=== PATIENT | male | born 1980 | race Caucasian/White ===

== ENCOUNTER 2017-06-08 21:50 | Inpatient (IN) | payer OTHER ==
[~2017-06-08] VITALS: Ht 182.9 cm; Wt 131.4 kg
[2017-06-08] MEDS ORDERED: SERT-138 PO (22:02)
[2017-06-08] MEDS ORDERED: AMLO5TAB2 PO (22:02)
[2017-06-08] MEDS ORDERED: OMEP20CA3 PO (22:02)
[2017-06-09] MEDS ORDERED: ONDANSETRON 4MG/2ML VIAL (J2405) IV ONE (00:30)
[2017-06-09] MEDS ORDERED: MORPHINE 4 MG/ML 1ML SYRINGE IV PRN (00:30)
[2017-06-09] MEDS ORDERED: NS 1,000 ML IV ONE (00:30)
[2017-06-09 01:41] LABS: BASO # 0.1 K/mm3 (0.0-0.2); BASO % 0.6 % (0.0-1.0); EOS # 0.2 K/mm3 (0.0-0.50); EOS % 1.5 % (0.0-3.0); LARGE UNSTAINED CELL # 0.2 K/mm3 (0.0-0.4); LARGE UNSTAINED CELL % 1.6 % (0.0-4.0); LYMPH # 2.7 K/mm3 (1.5-4.5); MEAN CORPUSCULAR HEMOGLOBIN 30.1 pg (27.0-33.0); MEAN CORPUSCULAR HGB CONC 34.9 g/dl (32.0-36.5); MEAN CORPUSCULAR VOLUME 86.3 fl (80.0-96.0); MONO # 0.5 K/mm3 (0.0-0.8); MONO % 4.7 % (0.0-5.0); NEUTROPHILS # 6.6 K/mm3 (1.8-7.7); NEUTROPHILS % 66.6 % (36.0-66.0); PLATELET COUNT, AUTOMATED 261 k/mm3 (150-450); RED CELL DISTRIBUTION WIDTH 13.9 % (11.5-14.5); WHITE BLOOD COUNT 9.9 K/mm3 (4.0-10.0)
[2017-06-09 02:03] LABS: ALBUMIN 3.8 GM/DL (3.2-5.2); ALBUMIN/GLOBULIN RATIO 1.06 (1.00-1.93); ALKALINE PHOSPHATASE 90 U/L (45-117); ALT/SGPT 86 U/L (12-78); ANION GAP 6 MEQ/L (8-16); AST/SGOT 49 U/L (15-37); BILIRUBIN,DIRECT 0.2 MG/DL (0.0-0.2); BILIRUBIN,TOTAL 1.2 MG/DL (0.2-1.0); BLOOD UREA NITROGEN 10 MG/DL (7-18); CALCIUM LEVEL 8.7 MG/DL (8.5-10.1); CARBON DIOXIDE LEVEL 27 MEQ/L (21-32); CHLORIDE LEVEL 105 MEQ/L (98-107); GLOMERULAR FILTRATION RATE > 60.0 (>60); GLUCOSE, FASTING 86 MG/DL (70-105); POTASSIUM SERUM 3.8 MEQ/L (3.5-5.1); SODIUM LEVEL 138 MEQ/L (136-145); TOTAL PROTEIN 7.4 GM/DL (6.4-8.2)
[2017-06-09] MEDS ORDERED: ISOVUE-370 76% 100ML VIAL (Q9967) As Ordered ONE (02:29)
--- NOTE | 2017-06-09 03:40 | REPUSA ---
CLINICAL HISTORY: Abdominal pain. TECHNIQUE: Multiple axial, sagittal and coronal CT images were obtained through the abdomen and pelvi s after administration of oral and intravenous contrast material. Images were obtained before and aft er IV contrast administration. COMMENTS: Mild apparent thickening of the sigmoid colon. The liver is moderately enlarged with decreased attenuation without mass or defect. There is no intra or extrahepatic biliary ductal dilatation. The spleen is normal. The gallbladder contains multiple g allstones. The pancreas is of normal contour and attenuation characteristics. There is no evidence of adrenal mass. Both kidneys demonstrate prompt and equal nephrograms. The kidneys are normal in size, shape and conf iguration. There is no evidence of renal or ureteral mass. No renal or ureteral calculi are identifie d. There is no hydroureter or hydronephrosis. Appendectomy. There is no bowel wall thickening. No evidence for small or large bowel obstruction. Th ere is no evidence of abdominal ascites or lymphadenopathy. There is no evidence of intrinsic or extrinsic bladder mass. There is no pelvic ascites or lymphadeno shahnaz. Mild diffuse thickening of the wall of the bladder. Images of the lung bases show no evidence of pleural or parenchymal mass. There are no pleural effusi ons. The bony structures are free of lytic or blastic lesions. Multilevel degenerative changes are seen in volving the thoracolumbar spine. Scattered calcifications are seen involving the aorta and major bran ches compatible with atherosclerosis. IMPRESSION: Apparent thickening of the sigmoid colon. Underdistention, spasm versus mild colitis. Surgical changes of anterior abdominal wall. Cholelithiasis. Appendectomy. Thank you for your kind referral of this patient.
--- NOTE | 2017-06-09 04:50 | REPUSA ---
CLINICAL HISTORY: RUQ pain. TECHNIQUE: Realtime sonographic images were obtained in multiple projections. COMMENTS: The visualized liver is of uniform increased echo texture without evidence of mass or defect. There i s no intra or extrahepatic biliary ductal dilatation. The gallbladder is physiologically distended wi tht evidence of calculi. The gallbladder wall is not thickened and there is no pericholecystic fluid. The visualized portions of the pancreas are unremarkable. The right kidney measures 13.2x5.9 cm. IMPRESSION: Fatty liver infiltration. Cholelithiasis. Thank you for your kind referral of this patient.
[2017-06-09] MEDS: HYDROmorphone HCL 1 MG/ML SYRINGE (J1170) IV PRN ×2 (04:53→07:18)
[2017-06-09] MEDS ORDERED: NS 1,000 ML IV SCH (08:44)
[2017-06-09] MEDS ORDERED: EPIDURAL/PCA KEYS XX PRN (08:45)
[2017-06-09] MEDS ORDERED: NALBUPHINE HCL 10 MG/ML AMP (J2300) IV PRN (08:45)
[2017-06-09] MEDS ORDERED: MORPHINE 1MG/ML IN 0.9% NACL 100ML IV BAG IV PRN (08:45)
[2017-06-09] MEDS ORDERED: diphenhydrAMINE INJ 50MG/ML VIAL (J1200) IV PRN (08:45)
[2017-06-09] MEDS ORDERED: NALOXONE INJ 0.4 MG/1 ML VIAL (J2310) IV PRN (08:45)
[2017-06-09] MEDS ORDERED: VITA-121 PO (09:05)
[2017-06-09] MEDS ORDERED: ACET1TAB17 PO (09:05)
[2017-06-09] MEDS ORDERED: ASPI1TAB PO (09:05)
[2017-06-09] MEDS ORDERED: VITMTA PO (09:05)
[2017-06-09] MEDS ORDERED: CINN500C9 PO (09:05)
[2017-06-09] MEDS: CIPROFLOXACIN 400 MG in APPROPRIATE DILUENT 1 EA IV SCH ×2 (09:53→21:13)
[2017-06-09] MEDS: D5W/LR 1,000 ML IV SCH ×2 (09:53→18:22)
[2017-06-09] MEDS: PANTOPRAZOLE 40MG TAB (PROTONIX) PO SCH (09:53)
[2017-06-09] MEDS: metroNIDAZOLE 500 MG in APPROPRIATE DILUENT 1 EA IV SCH ×2 (11:12→18:25)
[2017-06-09 12:10] VITALS: BP 126/79
[2017-06-09 13:30] VITALS: BP 128/71
[2017-06-09] MEDS: ACETAMINOPHEN TAB 650MG DOSE (2X325MG) PO PRN (13:38)
[2017-06-09 14:30] VITALS: BP 126/79
[2017-06-09] MEDS: DOCUSATE SODIUM 100 MG CAP PO SCH ×2 (15:26→21:12)
[2017-06-09 15:30] VITALS: BP 132/79
[2017-06-09] MEDS: IPRATROPIUM 0.5MG/ALBUTEROL 2.5MG INH SOL UD 3ML (DUONEB)(J7620) NEB SCH ×2 (15:44→20:00)
[2017-06-09 16:30] VITALS: BP 128/74
[2017-06-09] MEDS: ONDANSETRON 4MG/2ML VIAL (J2405) IV PRN (18:27)
[2017-06-09 20:00] VITALS: BP 121/69
[2017-06-10] VITALS: BP 114/77
[2017-06-10] MEDS: metroNIDAZOLE 500 MG in APPROPRIATE DILUENT 1 EA IV SCH ×3 (02:11→18:00)
[2017-06-10 04:00] VITALS: BP 116/67
[2017-06-10] MEDS: D5W/LR 1,000 ML IV SCH (07:15)
[2017-06-10] MEDS: IPRATROPIUM 0.5MG/ALBUTEROL 2.5MG INH SOL UD 3ML (DUONEB)(J7620) NEB SCH ×4 (07:25→21:16)
[2017-06-10 07:32] LABS: MEAN CORPUSCULAR HEMOGLOBIN 30.4 pg (27.0-33.0); MEAN CORPUSCULAR HGB CONC 34.4 g/dl (32.0-36.5); MEAN CORPUSCULAR VOLUME 88.2 fl (80.0-96.0); RED CELL DISTRIBUTION WIDTH 13.6 % (11.5-14.5); WHITE BLOOD COUNT 10.4 K/mm3 (4.0-10.0)
[2017-06-10 07:55] LABS: ANION GAP 7 MEQ/L (8-16); BLOOD UREA NITROGEN 6 MG/DL (7-18); CALCIUM LEVEL 8.6 MG/DL (8.5-10.1); CARBON DIOXIDE LEVEL 28 MEQ/L (21-32); CHLORIDE LEVEL 104 MEQ/L (98-107); CREATININE FOR GFR 0.83 MG/DL (0.70-1.30); GLOMERULAR FILTRATION RATE > 60.0 (>60); GLUCOSE, FASTING 122 MG/DL (70-105); POTASSIUM SERUM 4.1 MEQ/L (3.5-5.1); SODIUM LEVEL 139 MEQ/L (136-145)
[2017-06-10 08:00] VITALS: BP 131/95
[2017-06-10 08:24] LABS: ALBUMIN 3.4 GM/DL (3.2-5.2); ALBUMIN/GLOBULIN RATIO 0.94 (1.00-1.93); ALKALINE PHOSPHATASE 82 U/L (45-117); ALT/SGPT 95 U/L (12-78); AST/SGOT 51 U/L (15-37); BILIRUBIN,TOTAL 0.9 MG/DL (0.2-1.0)
[2017-06-10] MEDS: DOCUSATE SODIUM 100 MG CAP PO SCH ×2 (09:08→21:01)
[2017-06-10] MEDS: PANTOPRAZOLE 40MG TAB (PROTONIX) PO SCH (09:08)
[2017-06-10] MEDS: CIPROFLOXACIN 400 MG in APPROPRIATE DILUENT 1 EA IV SCH ×2 (09:08→21:01)
[2017-06-10 12:00] VITALS: BP 133/82
[2017-06-10] MEDS: NAPROXEN 250 MG TAB PO SCH ×2 (12:29→20:59)
[2017-06-10] MEDS: ONDANSETRON 4MG/2ML VIAL (J2405) IV PRN (13:58)
[2017-06-10 16:00] VITALS: BP 128/74
[2017-06-10 20:00] VITALS: BP 121/77
[2017-06-10] MEDS: ACETAMINOPHEN TAB 650MG DOSE (2X325MG) PO PRN (21:00)
[2017-06-11] VITALS: BP 142/80
[2017-06-11] MEDS: metroNIDAZOLE 500 MG in APPROPRIATE DILUENT 1 EA IV SCH (01:56)
[2017-06-11 04:00] VITALS: BP 114/74
[2017-06-11] MEDS: IPRATROPIUM 0.5MG/ALBUTEROL 2.5MG INH SOL UD 3ML (DUONEB)(J7620) NEB SCH ×2 (07:27→12:00)
[2017-06-11 07:37] LABS: MEAN CORPUSCULAR HEMOGLOBIN 30.3 pg (27.0-33.0); MEAN CORPUSCULAR HGB CONC 34.7 g/dl (32.0-36.5); MEAN CORPUSCULAR VOLUME 87.5 fl (80.0-96.0); RED CELL DISTRIBUTION WIDTH 13.6 % (11.5-14.5); WHITE BLOOD COUNT 9.1 K/mm3 (4.0-10.0)
[2017-06-11] MEDS ORDERED: traMADol 50 MG TAB PO PRN ×2 (07:45)
[2017-06-11 07:55] LABS: ANION GAP 5 MEQ/L (8-16); BLOOD UREA NITROGEN 9 MG/DL (7-18); CALCIUM LEVEL 8.9 MG/DL (8.5-10.1); CARBON DIOXIDE LEVEL 31 MEQ/L (21-32); CHLORIDE LEVEL 103 MEQ/L (98-107); CREATININE FOR GFR 0.96 MG/DL (0.70-1.30); GLOMERULAR FILTRATION RATE > 60.0 (>60); GLUCOSE, FASTING 110 MG/DL (70-105); POTASSIUM SERUM 3.7 MEQ/L (3.5-5.1); SODIUM LEVEL 139 MEQ/L (136-145)
[2017-06-11 08:00] VITALS: BP 112/71
[2017-06-11] MEDS: DOCUSATE SODIUM 100 MG CAP PO SCH (08:39)
[2017-06-11] MEDS: NAPROXEN 250 MG TAB PO SCH (08:40)
[2017-06-11] MEDS: CIPROFLOXACIN 400 MG in APPROPRIATE DILUENT 1 EA IV SCH (08:40)
[2017-06-11] MEDS: PANTOPRAZOLE 40MG TAB (PROTONIX) PO SCH (08:40)
[2017-06-11] MEDS ORDERED: CIPR-249 PO ×2 (13:36→13:38)
[2017-06-11] MEDS ORDERED: CIPROFLOXACIN 500 MG TAB PO SCH (18:00)
--- NOTE | 2017-07-06 19:19 | HPE ---
DATE OF ADMISSION: 06/09/2017 The patient is a 37-year-old gentleman who presents with abdominal pain, essentially woke up with severe back pain and right mid-sided abdominal pain. He, last August 2016, has had some ongoing pain problems with persistent discomfort, pressure on the right side of his abdomen. 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 PAST MEDICAL HISTORY: Significant for: 1. History of hypertension. 2. History of seasonal allergies. 3. History of diabetes mellitus. 4. History of appendiceal cancer. 5. History of appendectomy/peritonectomy. MEDICATIONS: Include: Norvasc, metformin, omeprazole, loratadine, Tylenol, oxycodone, Prozac, and lorazepam. PHYSICAL EXAMINATION: Reveals an obese white male who looks stated age. HEENT is unremarkable. Neck is supple without adenopathy. Lungs are clear to auscultation without crackles, wheezes or rhonchi. Heart is regular without murmur. Abdomen is soft, nondistended, nontender. No hepatosplenomegaly is appreciated. No masses are appreciated. No guarding. No rebound, although he has some tenderness on the right-hand side but it is really a deep pain and discomfort. It is not really superficial or even truly intra-abdominal type of pain. It seems to be quite deep or it is even been radiating from his back or laterally on his abdominal wall. He underwent evaluation, had a normal white count, had a CAT scan which was performed that showed some mild thickening of the sigmoid colon which could be from spasm or colitis. There were some surgical changes throughout his abdominal wall with some gallstones. No other significant abnormality was appreciated. They did do a gallbladder ultrasound which showed some fatty liver and gallstones but no evidence of acute inflammation. IMPRESSION AND PLAN: The patient has abdominal pain of undetermined etiology. My concern is that it probably is related to some previous scarring that he has had present which would fit better than an acute inflammatory process given his normal white count and truly no significant abnormality in this area. It may have been some adhesions that pulled. I do not see any hematoma present and it is unlikely that a malignancy recurrence would give this type of pain. In any case, we will make him nothing by mouth, IV fluids, IV antibiotics, start him on a clear liquid diet and advance his diet as tolerated once he seems to be under better pain control.
--- NOTE | 2017-07-06 19:23 | DSES ---
DATE OF ADMISSION: 06/09/2017 DATE OF DISCHARGE: 06/11/2017 PRINCIPAL DIAGNOSIS: Abdominal pain. ASSOCIATED DIAGNOSES: 1. History of appendiceal cancer with peritonectomy. 2. History of diabetes mellitus. 3. History of hypertension. 4. History of hypercholesterolemia. BRIEF HISTORY OF PRESENT ILLNESS: The patient is a 37-year-old gentleman who developed acute onset of right-sided abdominal pain, but mostly right flank pain. Came to the emergency room for evaluation and underwent a CAT scan, revealed no significant abnormality except some gallstones and some mild thickening/possible contracted colon and no evidence of abnormality on the right side of the abdomen. The patient has had some long history of abdominal pain since his abdominal operation and has been on pain medication for this, but this was a significant exacerbation and unusual for him. HOSPITAL COURSE SUMMARY: The patient was admitted with the above diagnosis, was given pain medication and had some improvement of his abdominal pain overnight. I anticipate it was most likely a musculoskeletal type of thing or adhesions which caused his abdominal pain, less likely to be an infectious etiology. He was discharged home on his usual medications; Tylenol, amlodipine, aspirin, vitamin D, acetaminophen, multivitamins, omeprazole, sertraline, and was also started on ciprofloxacin prior to discharge, and then was instructed to follow up in my office in two weeks, sooner if there is any question, concerns, fevers or chills in this the end of the dictation
== END 2017-06-11 14:45 | disposition home or self-care (01) | DRG 392 ==
LOC: M ED 21:50 → M ED INP 06-09 08:44 → M PED 06-09 11:28
PROVIDERS: ADMIT Surgery; ATTEND Surgery
DX: R10.9 Unspecified abdominal pain (principal); E11.9 Type 2 diabetes mellitus without complications; I10 Essential (primary) hypertension; E78.00 Pure hypercholesterolemia, unspecified; K80.20 Calculus of gallbladder without cholecystitis without obstruction

== ENCOUNTER 2017-07-22 10:30 | Outpatient (CLI) | payer OTHER ==
[~2017-07-22] VITALS: Ht 182.9 cm; Wt 127.0 kg
[~2017-07-22 10:30] MED LIST: ACET1TAB17 PO; AMLO5TAB2 PO; ASPI1TAB PO; CINN500C9 PO; CIPR-249 PO; OMEP20CA3 PO; SERT-138 PO; VITA-121 PO; VITMTA PO
[2017-07-22] MEDS ORDERED: PROPOFOL 500 MG/50 ML VIAL As Ordered ONE (10:42)
[2017-07-22] MEDS ORDERED: LIDOCAINE 2% INJ 100 MG/5 ML SDV (FOR ANES.) As Ordered ONE (10:52)
[2017-07-22] MEDS ORDERED: NS 1,000 ML IV ONE (11:00)
--- NOTE | 2017-07-22 11:20 | ROOR ---
Patient Name: Rip Reno Procedure Date: 07/22/2017 11:09 AM Date of : 1980 Age: 37 Room: [facility] Gender: Male Note Status: Finalized Procedure: Upper GI endoscopy Indications: Suspected esophageal reflux Providers: Joel Gallegos Jr, MD Referring MD: RIGOBERTO DESHPANDE MD Requesting Provider: Medicines: Propofol per Anesthesia Complications: No immediate complications. Procedure: Pre-Anesthesia Assessment: - Prior to the procedure, a History and Physical was performed, and patient medications and allergies were reviewed. The patient is competent. The risks and benefits of the procedure and the sedation options and risks were discussed with the patient. All questions were answered and informed consent was obtained. Patient identification and proposed procedure were verified by the physician and the nurse in the pre-procedure area and in the procedure room. Mental Status Examination: alert and oriented. Airway Examination: normal oropharyngeal airway and neck mobility. Respiratory Examination: clear to auscultation. CV Examination: normal. ASA Grade Assessment: II - A patient with mild systemic disease. After reviewing the risks and benefits, the patient was deemed in satisfactory condition to undergo the procedure. The anesthesia plan was to use moderate sedation / analgesia (conscious sedation). Immediately prior to administration of medications, the patient was re-assessed for adequacy to receive sedatives. The heart rate, respiratory rate, oxygen saturations, blood pressure, adequacy of pulmonary ventilation, and response to care were monitored throughout the procedure. The physical status of the patient was re-assessed after the procedure. The Endoscope was introduced through the mouth, and advanced to the second part of duodenum. The upper GI endoscopy was accomplished without difficulty. The patient tolerated the procedure. Findings: The upper third of the esophagus, middle third of the esophagus and lower third of the esophagus were normal. The cardia, gastric fundus, gastric antrum, prepyloric region of the stomach and pylorus were normal. Localized mildly erythematous mucosa without bleeding was found in the gastric body. The duodenal bulb, first portion of the duodenum and second portion of the duodenum were normal. Impression: - Normal upper third of esophagus, middle third of esophagus and lower third of esophagus. - Normal cardia, gastric fundus, antrum, prepyloric region of the stomach and pylorus. - Erythematous mucosa in the gastric body. - Normal duodenal bulb, first portion of the duodenum and second portion of the duodenum. - No specimens collected. Recommendation: - Discharge patient to home (ambulatory). - Return to my office PRN. Joel Gallegos MD Joel Gallegos Jr, MD 07/22/2017 11:20:21 AM This report has been signed electronically. Number of Addenda: 0 Note Initiated On: 07/22/2017 11:09 AM Estimated Blood Loss: Estimated blood loss: none.
--- NOTE | 2017-07-22 11:46 | ROOR ---
Patient Name: Rip Reno Procedure Date: 07/22/2017 11:10 AM Date of : 1980 Age: 37 Room: [facility] Gender: Male Note Status: Finalized Procedure: Colonoscopy Indications: High risk colon cancer surveillance: Personal history of colon cancer Providers: Joel Gallegos Jr, MD Referring MD: RIGOBERTO DESHPANDE MD Requesting Provider: Medicines: Propofol per Anesthesia Complications: No immediate complications. Procedure: Pre-Anesthesia Assessment: - Prior to the procedure, a History and Physical was performed, and patient medications and allergies were reviewed. The patient is competent. The risks and benefits of the procedure and the sedation options and risks were discussed with the patient. All questions were answered and informed consent was obtained. Patient identification and proposed procedure were verified by the physician and the nurse in the pre-procedure area and in the procedure room. Mental Status Examination: alert and oriented. Airway Examination: normal oropharyngeal airway and neck mobility. Respiratory Examination: clear to auscultation. CV Examination: normal. ASA Grade Assessment: II - A patient with mild systemic disease. After reviewing the risks and benefits, the patient was deemed in satisfactory condition to undergo the procedure. The anesthesia plan was to use moderate sedation / analgesia (conscious sedation). Immediately prior to administration of medications, the patient was re-assessed for adequacy to receive sedatives. The heart rate, respiratory rate, oxygen saturations, blood pressure, adequacy of pulmonary ventilation, and response to care were monitored throughout the procedure. The physical status of the patient was re-assessed after the procedure. The Colonoscope was introduced through the anus and advanced to the cecum, identified by appendiceal orifice and ileocecal valve. The colonoscopy was performed without difficulty. The patient tolerated the procedure well. The quality of the bowel preparation was adequate. Findings: Six polyps were found in the rectum, recto-sigmoid colon, descending colon, transverse colon and cecum. The polyps were small in size. These polyps were removed with a hot snare. Resection was complete, but the polyp tissue was only partially retrieved. The recto-sigmoid colon, ascending colon, appendiceal orifice and ileocecal valve appeared normal. Impression: - Six small polyps in the rectum, at the recto-sigmoid colon, in the descending colon, in the transverse colon and in the cecum, removed with a hot snare. Complete resection. Partial retrieval. - The recto-sigmoid colon, ascending colon, appendiceal orifice and ileocecal valve are normal. Recommendation: - Discharge patient to home (ambulatory). - Repeat colonoscopy in 1 year for surveillance based on pathology results. - Return to my office in 1 month. Joel Gallegos MD Joel Gallegos Jr, MD 07/22/2017 11:46:24 AM This report has been signed electronically. Number of Addenda: 0 Note Initiated On: 07/22/2017 11:10 AM Estimated Blood Loss: Estimated blood loss: none.
[2017-07-22] MEDS ORDERED: ASPI81TA85 PO (11:58)
[2017-07-22 12:10] VITALS: BP 139/96
== END 2017-07-22 12:27 | disposition home or self-care (01) ==
LOC: M OPP 10:30
PROVIDERS: ATTEND Surgery
DX: Z12.11 Encounter for screening for malignant neoplasm of colon (principal); Z85.038 Personal history of other malignant neoplasm of large intestine; K62.1 Rectal polyp; D12.7 Benign neoplasm of rectosigmoid junction; D12.4 Benign neoplasm of descending colon; D12.3 Benign neoplasm of transverse colon; D12.0 Benign neoplasm of cecum; R12 Heartburn; R10.813 Right lower quadrant abdominal tenderness; K21.9 Gastro-esophageal reflux disease without esophagitis; K31.89 Other diseases of stomach and duodenum; K52.9 Noninfective gastroenteritis and colitis, unspecified; I10 Essential (primary) hypertension; Z92.21 Personal history of antineoplastic chemotherapy; Z86.19 Personal history of other infectious and parasitic diseases; F32.9 Major depressive disorder, single episode, unspecified; G47.30 Sleep apnea, unspecified; Z87.442 Personal history of urinary calculi; Z88.8 Allergy status to other drugs, medicaments and biological substances; Z79.899 Other long term (current) drug therapy; Z79.82 Long term (current) use of aspirin

== ENCOUNTER 2018-12-25 18:15 | Emergency (ER) | payer OTHER ==
[~2018-12-25] VITALS: Ht 182.9 cm; Wt 131.8 kg
[~2018-12-25 18:15] MED LIST changes: -ACET1TAB17 PO; +ACET1TAB55 PO; -AMLO5TAB2 PO; +AMLO5TAB6 PO; +ASPI81TA85 PO
[2018-12-25] MEDS ORDERED: LIDOCAINE 2% MDV 20 ML VIAL SC ONE (19:15)
[2018-12-25] MEDS ORDERED: ADACEL/BOOSTRIX VACCINE (DIPHTH/PERTUSS/ACELL/TETANUS)0.5ML SYR (90715) IM ONE (19:15)
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
[2018-12-25 20:26] VITALS: BP 136/72
== END 2018-12-25 20:30 | disposition home or self-care (01) ==
LOC: M ED 18:15
DX: S01.81XA Laceration without foreign body of other part of head, initial encounter (principal); S00.01XA Abrasion of scalp, initial encounter; S00.12XA Contusion of left eyelid and periocular area, initial encounter; V86.55XA Driver of 3- or 4- wheeled all-terrain vehicle (ATV) injured in nontraffic accident, initial encounter; Y92.014 Private driveway to single-family (private) house as the place of occurrence of the external cause; I10 Essential (primary) hypertension; G47.33 Obstructive sleep apnea (adult) (pediatric); F33.9 Major depressive disorder, recurrent, unspecified; Z79.899 Other long term (current) drug therapy; Z79.82 Long term (current) use of aspirin; Z88.8 Allergy status to other drugs, medicaments and biological substances

== ENCOUNTER → 2020-05-23 | Outpatient (CLI) | payer OTHER ==
[~2020-05-23] MED LIST changes: +AMLO1TAB24 PO; -AMLO5TAB6 PO; -ASPI1TAB PO; +ASPI81TA26 PO; -ASPI81TA85 PO; +ASPI81TA86 PO; +OMEP1CAP73 PO; -OMEP20CA3 PO
--- NOTE | 2020-07-20 10:51 | REP ---
THORACIC SPINE SERIES: HISTORY: Mid-back pain. No injury. FINDINGS: 3-views of the thoracic spine performed. There is no evidence of compression fracture. There is normal alignment and thoracic kyphosis. There is mild diffuse spurring. There is mild disc space narrowing and subchondral sclerosis at multiple levels. The posterior elements are intact. IMPRESSION: Mild diffuse degenerative changes without evidence of compression fracture or malalignment. MTDD
== END ==
LOC: M WUC 11:31
PROVIDERS: ATTEND Internal Medicine
DX: M54.9 Dorsalgia, unspecified (principal)

== ENCOUNTER 2023-06-02 08:11 | Emergency (ER) | payer OTHER ==
[~2023-06-02] VITALS: Ht 182.9 cm; Wt 137.2 kg
[2023-06-02 08:11] VITALS: BP 139/86; TEMP 98; O2SAT 98
[2023-06-02] MEDS ORDERED: METF850T4 (08:18)
[2023-06-02] MEDS ORDERED: TRUL0.5I (08:18)
[2023-06-02] MEDS ORDERED: ROSU10TA6 (08:18)
[2023-06-02 10:37] LABS: BASO # 0.1 10^3/uL (0.0-0.2); BASO % 0.6 % (0.0-1.0); EOS # 0.1 10^3/uL (0.0-0.5); EOS % 1.3 % (0.0-3.0); HEMATOCRIT 44.1 % (42.0-52.0); HEMOGLOBIN 14.6 g/dl (13.5-17.5); LYMPH # 1.8 10^3/uL (1.5-5.0); LYMPH % 17.6 % (24.0-44.0); MEAN CORPUSCULAR HEMOGLOBIN 27.8 pg (27.0-33.0); MEAN CORPUSCULAR HGB CONC 33.1 g/dl (32.0-36.5); MEAN CORPUSCULAR VOLUME 83.8 fl (80.0-96.0); MONO # 0.7 10^3/uL (0.0-0.8); MONO % 6.9 % (2.0-8.0); NEUTROPHILS # 7.4 10^3/uL (1.5-8.5); NEUTROPHILS % 73.3 % (36.0-66.0); PLATELET COUNT, AUTOMATED 291 10^3/uL (150-450); RED BLOOD COUNT 5.26 10^6/uL (4.30-6.10); WHITE BLOOD COUNT 10.1 10^3/uL (4.0-10.0)
[2023-06-02 11:07] LABS: ALBUMIN 4.2 G/DL (3.2-5.2); ALKALINE PHOSPHATASE 80 U/L (46-116); ALT/SGPT 49 U/L (7.0-40); AST/SGOT 24 U/L (<34); BLOOD UREA NITROGEN 19 MG/DL (9-23); CALCIUM LEVEL 10.1 MG/DL (8.5-10.1); CARBON DIOXIDE LEVEL 26 MMOL/L (20-31); CHLORIDE LEVEL 104 MMOL/L (98-107); CREATININE FOR GFR 0.94 MG/DL (0.70-1.30); GLOMERULAR FILTRATION RATE > 60.0 (>60); GLUCOSE, FASTING 109 MG/DL (60-100); POTASSIUM SERUM 4.4 MMOL/L (3.5-5.1); SODIUM LEVEL 141 MMOL/L (136-145); TOTAL PROTEIN 7.5 G/DL (5.7-8.2)
[2023-06-02 11:15] LABS: HEPATITIS B SURFACE ANTIBODY POSITIVE (POSITIVE)
[2023-06-02 11:39] LABS: HIV 1&2 SCREEN NEGATIVE (NEGATIVE)
[2023-06-02 11:48] LABS: HEPATITIS C VIRUS ABY INDEX 0.13 INDEX (<0.8)
== END 2023-06-02 11:25 | disposition home or self-care (01) ==
LOC: M ED 08:11
DX: Z77.21 Contact with and (suspected) exposure to potentially hazardous body fluids (principal); I10 Essential (primary) hypertension; K21.9 Gastro-esophageal reflux disease without esophagitis; Z85.038 Personal history of other malignant neoplasm of large intestine; G47.30 Sleep apnea, unspecified; Z87.442 Personal history of urinary calculi; F32.A Depression, unspecified; Z79.899 Other long term (current) drug therapy; Z79.82 Long term (current) use of aspirin; Z79.84 Long term (current) use of oral hypoglycemic drugs; Z88.8 Allergy status to other drugs, medicaments and biological substances

== ENCOUNTER 2025-07-30 18:14 | Emergency (ER) | payer OTHER ==
[~2025-07-30] VITALS: Ht 182.9 cm; Wt 136.4 kg
[~2025-07-30 18:14] MED LIST changes: +METF850T4; +ROSU10TA61; +TRUL0.5I
[2025-07-30 18:19] VITALS: BP 134/87; TEMP 97.5; O2SAT 98
[2025-07-30] MEDS ORDERED: DULA4.5P (18:27)
[2025-07-30] MEDS ORDERED: AMLO1TAB25 (18:27)
[2025-07-30 21:38] LABS: BASO # 0.1 10^3/uL (0.0-0.2); BASO % 0.6 % (0.0-1.0); EOS # 0.2 10^3/uL (0.0-0.5); EOS % 1.6 % (0.0-3.0); LYMPH # 3.4 10^3/uL (1.5-5.0); LYMPH % 30.0 % (24.0-44.0); MONO # 0.8 10^3/uL (0.0-0.8); MONO % 6.8 % (2.0-8.0); NEUTROPHILS # 6.9 10^3/uL (1.5-8.5); NEUTROPHILS % 60.7 % (36.0-66.0); PLATELET COUNT, AUTOMATED 308 10^3/uL (150-450)
[2025-07-30 21:38] LABS: KETONE, URINE AUTO RFX NEGATIVE (NEGATIVE); MUCUS, URINE RFX SMALL (NEGATIVE); NITRITE, URINE AUTO RFX NEGATIVE (NEGATIVE); RBC, URINE AUTO RFX 1 /HPF (0-3); SQUAM EPITHELIAL CELL UR AURFX 0 /HPF (0-6); WBC, URINE AUTO RFX 8 /HPF (0-3)
[2025-07-30 21:55] LABS: LEUKOCYTE ESTERASE UR AUTO RFX TRACE (NEGATIVE)
[2025-07-30 21:59] LABS: CALCIUM LEVEL 9.1 MG/DL (8.5-10.1); CARBON DIOXIDE LEVEL 26.0 MMOL/L (20-31); CHLORIDE LEVEL 104.0 MMOL/L (98-107); CREATININE FOR GFR 1.08 MG/DL (0.70-1.30); GLOMERULAR FILTRATION RATE 86.2 (>60); POTASSIUM SERUM 4.0 MMOL/L (3.5-5.1); SODIUM LEVEL 142.0 MMOL/L (136-145)
== END 2025-07-30 23:07 | disposition left against medical advice (07) ==
LOC: M ED 18:14
DX: Z53.21 Procedure and treatment not carried out due to patient leaving prior to being seen by health care provider (principal)

== ENCOUNTER → 2025-08-14 | Outpatient (CLI) | payer OTHER ==
[~2025-08-14] MED LIST changes: +AMLO1TAB25; +AMLO1TAB25 PO; +APAP500T10 PO; +DULA4.5P; +METF-1191 PO; -ROSU10TA61; +ROSU10TA90; +ROSU10TA90 PO; +SERT50TA29 PO; +THERTAB52 PO; +TRUL0.5I SC
[2025-08-14 17:36] LABS: APPEARANCE, URINE CLOUDY (CLEAR); BACTERIA, URINE AUTO NEGATIVE (NEGATIVE); BILIRUBIN, URINE AUTO NEGATIVE (NEGATIVE); BLOOD, URINE BLOOD NEGATIVE (NEGATIVE); CALCIUM OXALATE CRYSTALS SMALL; GLUCOSE, URINE (UA) AUTO NEGATIVE (NEGATIVE); KETONE, URINE AUTO NEGATIVE (NEGATIVE); LEUKOCYTE ESTERASE, URINE AUTO TRACE (NEGATIVE); MUCUS, URINE SMALL (NEGATIVE); NITRITE, URINE AUTO NEGATIVE (NEGATIVE); PROTEIN, URINE AUTO 1+ mg/dL (NEGATIVE); RBC, URINE AUTO 7 /HPF (0-3); SPECIFIC GRAVITY URINE AUTO 1.024 (1.002-1.035); SQUAMOUS EPITHELIAL CELL UR AU 0 /HPF (0-6); UROBILINOGEN, URINE AUTO 0.2 mg/dL (0.0-2.0); WBC, URINE AUTO 23 /HPF (0-3)
[2025-08-14 18:05] LABS: CALCIUM LEVEL 10.2 MG/DL (8.5-10.1); CARBON DIOXIDE LEVEL 26.0 MMOL/L (20-31); CHLORIDE LEVEL 103.0 MMOL/L (98-107); CREATININE FOR GFR 1.2 MG/DL (0.70-1.30); GLOMERULAR FILTRATION RATE 76.0 (>60); POTASSIUM SERUM 3.9 MMOL/L (3.5-5.1); SODIUM LEVEL 141.0 MMOL/L (136-145)
== END ==
LOC: M WUC 14:58
PROVIDERS: ATTEND Physician Assistant
DX: Z01.818 Encounter for other preprocedural examination (principal)

== ENCOUNTER → 2025-08-16 | Outpatient (REF) | payer OTHER ==
[~2025-08-16] MED LIST changes: +MACR100C43 PO; +OXYB5TAB14 PO; +PYRI1TAB5 PO
[2025-08-16 14:53] LABS: PLATELET COUNT, AUTOMATED 338 10^3/uL (150-450)
== END ==
LOC: M LABWUC 14:30
PROVIDERS: ATTEND Physician Assistant
DX: Z01.818 Encounter for other preprocedural examination (principal)

== ENCOUNTER 2025-08-23 12:34 | Day surgery (SDC) | payer OTHER ==
[~2025-08-23] VITALS: Ht 182.9 cm; Wt 132.7 kg
[~2025-08-23 12:34] MED LIST changes: +LIDOCAINE 2% 100 MG/5 ML SDV (FOR ANES.) As Ordered ONE; -MACR100C43 PO; -OXYB5TAB14 PO; -PYRI1TAB5 PO; +ceFAZolin SOD 2 GM IV ONCE IV ONE; +dexAMETHasone 4 MG/ML 1 ML VIAL As Ordered ONE
[2025-08-23] MEDS ORDERED: LR 1,000 ML IV SCH ×2 (12:40→14:30)
[2025-08-23] MEDS: ceFAZolin SOD 3 GM in DEXTROSE 5% (D5W) MINI-BAG PLU 1... IV ONE (13:26)
[2025-08-23] MEDS ORDERED: KETOROLAC 30 MG/ML 1 ML VIAL As Ordered ONE (13:36)
[2025-08-23] MEDS ORDERED: ONDANSETRON 4MG/2ML VIAL As Ordered ONE (13:36)
[2025-08-23] MEDS ORDERED: ACETAMINOPHEN 1000MG/100ML IV BAG As Ordered ONE (13:40)
[2025-08-23] MEDS: ISOVUE-300 61% 100 ML VIAL As Ordered ONE (14:15)
[2025-08-23] MEDS ORDERED: HYDROMORPHONE HCL 0.5 MG/0.5 ML SYRINGE IV PRN (14:30)
[2025-08-23] MEDS ORDERED: MACR100C43 PO (14:30)
[2025-08-23] MEDS ORDERED: PYRI1TAB5 PO (14:30)
[2025-08-23] MEDS ORDERED: OXYB5TAB14 PO (14:30)
[2025-08-23] MEDS ORDERED: ONDANSETRON 4MG/2ML VIAL IV PRN (14:30)
[2025-08-23 15:25] VITALS: BP 122/65; TEMP 97.2; O2SAT 95
== END 2025-08-23 16:00 | disposition home or self-care (01) ==
LOC: M SDC 12:34
PROVIDERS: ATTEND Urology
DX: N20.1 Calculus of ureter (principal); N28.89 Other specified disorders of kidney and ureter; E11.9 Type 2 diabetes mellitus without complications; I10 Essential (primary) hypertension; E78.00 Pure hypercholesterolemia, unspecified; Z79.85 Long-term (current) use of injectable non-insulin antidiabetic drugs; Z79.84 Long term (current) use of oral hypoglycemic drugs; Z79.899 Other long term (current) drug therapy; K21.9 Gastro-esophageal reflux disease without esophagitis; G47.30 Sleep apnea, unspecified; Z87.891 Personal history of nicotine dependence; Z88.8 Allergy status to other drugs, medicaments and biological substances; Z91.040 Latex allergy status; Z92.21 Personal history of antineoplastic chemotherapy
CPT/HCPCS: 52354; 52356; 76000; 82365; 88305; C1769; C2617; J0131; J0688; J1100; J1885; J2405; J3010; Q9967